=== PATIENT | male | born 2000 | race African-American/Black ===

== ENCOUNTER 2021-06-14 18:48 | Emergency (ER) | payer OTHER, SELFPAY ==
[2021-06-14 18:48] VITALS: BP 127/78; PULSE 71; RESP 16; TEMP 36.8; O2SAT 98; BMI 28.7
--- NOTE | 2021-06-14 19:22 | ED.MALEGU ---
HPI - Male Genitourinary General Chief complaint: Urogenital-Male Stated complaint: WANTS STD TEST Time Seen by Provider: 06/14/21 19:22 Source: patient Mode of arrival: Ambulatory Limitations: no limitations History of Present Illness HPI Narrative: This is a 20-year-old male with no known medical issues. Patient is here requesting testing for STI. Patient states he has not had prior infections in the past. He has had male and female partners in the past. Most recent male partner has use protection intermittently but has only 1 partner. Patient states he has had annual testing and is presenting for that today. He does not wish to do HIV hepatitis C testing today. He is aware that this does need to be checked. He has been asymptomatic, denies any testicular pain, no discharge, no dysuria, no rashes or skin changes. He has not had fevers or chills or other symptoms. He denies any daily medications. No surgeries. No allergies to medications. He recently moved to the area and established at the [facility] for primary care. Review of Systems Review of Systems ROS Unobtainable: All systems reviewed & are unremarkable except as noted in HPI and below Patient History Social History Smoking Status: Never smoker Smoking Status: Never smoker Substance Use Type: does not use Exam Narrative Exam Narrative: GENERAL: Alert and oriented x three, male in no acute distress. HEENT: Head normocephalic, atraumatic, EOMI, pupils reactive, face symmetric, moist mucous membranes NECK: Supple, full range of motion CARDIOVASCULAR: Regular rate and rhythm without murmurs, rubs or gallops. RESPIRATORY: Breath sounds equal bilaterally, no wheezes rales or rhonchi. ABDOMEN: Soft, nontender. Normoactive bowel sounds all 4 quadrants. No guarding or rebound, rigidity, no mass : No CVA tenderness. Male: normal external examination, no penile discharge or lesions, testicles non-tender, cremasteric reflex intact, no inguinal hernias noted. No rashes lesions or skin changes. EXTREMITIES: Normal range of motion, no clubbing or edema. Neurovascularly intact NEUROLOGICAL: Cranial nerves II through XII grossly intact. Moving all extremities SKIN: Warm, dry, no petechiae, no rashes or lesions. Initial Vital Signs Initial Vital Signs: Vital Signs Temperature 98.3 F 06/14/21 18:48 Pulse Rate 71 06/14/21 18:48 Respiratory Rate 16 06/14/21 18:48 Blood Pressure 127/78 06/14/21 18:48 Pulse Oximetry 98 06/14/21 18:48 Course Orders Ordered: ED Orders 06/14/21 19:30 Chlamydia Gonorrhea PCR -URINE Stat Reevaluation(s) Reevaluation #1: Patient is asymptomatic with negative urine GC today. Discussed places options to be tested for HIV and hep C as they deferred today. They do plan to follow-up for this testing. All questions answered. Vital Signs Vital signs: Vital Signs - 8 hr 06/14/21 18:48 Temperature 98.3 F Pulse Rate 71 Respiratory Rate 16 Blood Pressure 127/78 Pulse Oximetry 98 MDM - Male Genitourinary Lab Data Labs: Lab Results 06/14/21 Range/Units 19:30 Ur Chlamydia DNA (PCR) Not detected N gonorrhoeae DNA (PCR) Not detected MDM Narrative Medical decision making narrative: This is a 20-year-old sexually active male requesting evaluation for gonorrhea and chlamydia. Patient does not have any known exposures or symptoms currently and is seeking what he describes as annual testing. He does know that he needs HIV and hepatitis C testing but defers doing that today. Discharge Plan Departure Patient Disposition: Home Clinical Impression: Patient request for diagnostic testing Activity Restrictions/Additional Instructions: Continued to have regular annual testing for infections. I do recommend you have testing for HIV and hepatitis-C if your sexually active. Options include your primary care physician [facility] in [place] at [phone] Please return for fevers, painful urination, drainage from the penis, rashes or skin changes, testicular pain, abdominal pain or other new or concerning symptoms.
[2021-06-14 21:04] LABS: Urine N gonorrhoeae NOT DETECTED
[2021-06-14 21:17] LABS: Urine Chlamydia NOT DETECTED
== END 2021-06-14 21:23 | disposition home or self-care (01) ==
PROVIDERS: Emergency Provider Emergency Medicine
DX: Z11.3 Encounter for screening for infections with a predominantly sexual mode of transmission (principal)
CPT/HCPCS: 87491; 87591; 99281; 99282

== ENCOUNTER 2022-06-01 01:04 | Emergency (ER) | payer OTHER, SELFPAY ==
[2022-06-01 01:09] VITALS: BP 151/90; PULSE 84; RESP 18; TEMP 36.6; O2SAT 100; BMI 26.5
[2022-06-01 02:02] LABS: Appearance Urine UA CLEAR; Bilirubin Urine UA NEGATIVE (NEGATIVE); Color Urine UA YELLOW; Glucose Urine UA NEGATIVE (Negative); Ketones Urine UA TRACE (NEGATIVE); Leukocyte Esterase Urine UA NEGATIVE (NEGATIVE); Nitrite Urine UA NEGATIVE (Negative); Occult Blood Urine UA NEGATIVE (Negative); Protein Urine UA NEGATIVE (Negative)
[2022-06-01 02:19] LABS: Bacteria Urine None Seen; Culture Indicated Urine Cult Not Indicated; RBC Urine None Seen (0-5/HPF); WBC Urine None Seen (0-5/HPF)
[2022-06-01 02:25] LABS: Add Manual Diff / Slide Review NO; Basophils Absolute Auto 0 /uL (0-100); Basophils Percent Auto 0.8 % (0-2); Eosinophils Absolute Auto 100 /uL (0-450); Eosinophils Percent Auto 1.8 % (2-4); Hematocrit 41.1 % (41-53); Hemoglobin 13.6 g/dL (13.5-17.5); Lymphocytes Absolute Auto 1800 /uL (1100-4500); Lymphocytes Percent Auto 40.9 % (25-40); Mean Corpuscular HGB Conc 33.1 % (30-36); Mean Corpuscular Hemoglobin 28.7 PG (26-34); Mean Corpuscular Volume 86.7 fL (80-100); Monocytes Absolute Auto 900 /uL (0-900); Monocytes Percent Auto 19.9 % (3-14); Neutrophils Absolute Auto 1700 /uL (1500-7000); Neutrophils Percent Auto 36.6 % (50-75); Platelet Count 285 X10^3/uL (150-400); Red Blood Cell Count 4.74 X10^6/uL (4.5-5.9); Red Cell Distribution Width 13.6 % (11.6-14.8); White Blood Cell Count 4.5 X10^3/uL (4.5-11.0)
[2022-06-01 02:33] LABS: Alanine Aminotransferase 15 IU/L (<50); Albumin Globulin Ratio 1.4 (1.0-2.8); Alkaline Phosphatase 56 U/L (38-126); Aspartate Aminotransferase 24 IU/L (17-59); BUN Creatinine Ratio 13.9 (6-22); Bilirubin Total 0.5 mg/dL (0.2-1.3); Blood Urea Nitrogen 11 mg/dL (9-20); Calcium 8.7 mg/dL (8.4-10.2); Carbon Dioxide 29 mmol/L (22-32); Chloride 104 mmol/L (98-107); Estimated Glomerular Filt Rate > 60 mL/min (>60); Globulin 2.8 g/dL (1.7-4.1); Glucose 81 mg/dL (70-100); HEMOLYSIS < 15 (0-50); Potassium 3.7 mmol/L (3.4-5.1); Sodium 139 mmol/L (137-145); Total Protein 6.8 g/dL (6.3-8.2)
[2022-06-01 02:36] LABS: Ur Creatinine Normal (Normal); Ur Specific Gravity Normal (Normal); Urine pH Normal (Normal)
[2022-06-01 02:37] LABS: UR Morphine/Opiate cutoff 300 Negative (Negative); Urine Amphetamines Negative (Negative); Urine Barbiturates Negative (Negative); Urine Benzodiazepines Negative (Negative); Urine Cocaine Negative (Negative); Urine MDMA Negative (Negative); Urine Methadone Negative (Negative); Urine Methamphetamines Negative (Negative); Urine Oxycodone Negative (Negative); Urine Phencyclidine Negative (Negative); Urine Tetrahydrocannabinol Negative (Negative); Urine Tricyclic Antidepressant Negative (Negative)
[2022-06-01 03:03] LABS: Ethanol (ETOH) < 10 mg/dL
--- NOTE | 2022-06-01 03:13 | ED.PSYCH ---
HPI - Psych <Quinton Valderrama DO - Last Filed: 06/02/22 17:28> General Chief Complaint: Psychiatric Symptoms Stated Complaint: wants to kill himself Time Seen by Provider: 06/01/22 01:11 Source: patient Mode of arrival: Ambulatory History of Present Illness HPI Narrative: 21-year-old male nonsmoker with noncontributory medical history presents with a chief complaint of suicidal ideation with plan to use a knife. He actually presented with such a knife to the emergency department. He does have a therapist that he sees in [place], saw them yesterday but was not feeling suicidal at the time. Trigger melanie was his girlfriend. Patient is active duty. He denies any prior episodes of suicidal ideation sufficient to warrant visit to the emergency department <Scott Liriano MD - Last Filed: 06/01/22 22:13> History of Present Illness HPI Narrative: 21-year-old male nonsmoker with noncontributory medical history presents with a chief complaint of suicidal ideation with plan to use a knife. He actually presented with such a knife to the emergency department. He does have a therapist that he sees in [place], saw them yesterday but was not feeling suicidal at the time. Trigger tondennis was his girlfriend. Patient is active duty. He denies any prior episodes of suicidal ideation sufficient to warrant visit to the emergency department Review of Systems <Quinton Valderrama DO - Last Filed: 06/02/22 17:28> Review of Systems Narrative: GENERAL: Denies chills, fatigue, malaise, fever, sweats. HEENT: Denies sinus pain, ear pain, sore throat, difficulty swallowing, dizziness. RESPIRATORY: Denies dyspnea, cough, wheezing, hemoptysis, sputum. CARDIOVASCULAR: Denies chest pain, palpitations, orthopnea, edema, GASTROINTESTINAL: Denies nausea, vomiting, abdominal pain, diarrhea, constipation, melena. : Denies dysuria, frequency, incontinence, hematuria, urinary retention. MUSCULOSKELETAL: denies weakness, joint pain, or bony pain SKIN: Denies rash, skin lesions, or other NEUROLOGIC: Denies weakness, headache, numbness, change in speech, confusion, seizures, incoordination. PSYCHIATRIC: See HPI 12 point review of systems is negative except for those stated above Patient History <Quinton Valderrama DO - Last Filed: 06/02/22 17:28> Social History Smoking Status: Never smoker Smoking Status: Never smoker alcohol intake frequency: a few times a month Substance Use Type: does not use Exam <Quinton Valderrama DO - Last Filed: 06/02/22 17:28> Narrative Exam Narrative: GENERAL: [21] year old patient appears stated age. Well-developed patient, in mild distress. HEAD: Atraumatic. Normocephalic. EYES: Pupils equal round and reactive. Extraocular motions intact. No scleral icterus. No injection or drainage. ENT: Nose without bleeding, purulent drainage. Throat without erythema, tonsillar hypertrophy or exudate. Airway patent. NECK: Trachea midline. Non tender CARDIOVASCULAR: Regular rate and rhythm without murmurs, gallops, or rubs. RESPIRATORY: Clear to auscultation. Breath sounds equal bilaterally. No wheezes, rales, or rhonchi. GASTROINTESTINAL: Abdomen soft, non-tender, nondistended. EXTREMITIES: No edema or joint tenderness. BACK: Nontender without deformity or crepitance. No flank tenderness. NEURO: AOx3. SKIN: No rash or erythema of visible areas Initial Vital Signs Initial Vital Signs: Vital Signs Temperature 98 F 06/01/22 01:09 Pulse Rate 84 06/01/22 01:09 Respiratory Rate 18 06/01/22 01:09 Blood Pressure 151/90 H 06/01/22 01:09 Pulse Oximetry 100 06/01/22 01:09 Oxygen Delivery Method Room Air 06/01/22 01:09 <Scott Liriano MD - Last Filed: 06/01/22 22:13> Initial Vital Signs Initial Vital Signs: Vital Signs Temperature 98 F 06/01/22 01:09 Pulse Rate 84 06/01/22 01:09 Respiratory Rate 18 06/01/22 01:09 Blood Pressure 151/90 H 06/01/22 01:09 Pulse Oximetry 100 06/01/22 01:09 Oxygen Delivery Method Room Air 06/01/22 01:09 Course <Quinton Valderrama DO - Last Filed: 06/02/22 17:28> Orders Ordered: ED Orders 06/01/22 06:39 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 Stat 06/01/22 08:10 COVID19 -Nasal RAPID/Pre-Proc Stat Vital Signs Vital signs: Vital Signs - 8 hr 06/01/22 14:25 Pulse Rate 70 Respiratory Rate 16 Blood Pressure 142/87 H Pulse Oximetry 100 <Scott Liriano MD - Last Filed: 06/01/22 22:13> Orders Ordered: ED Orders 06/01/22 06:39 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 Stat 06/01/22 08:10 COVID19 -Nasal RAPID/Pre-Proc Stat Vital Signs Vital signs: Vital Signs - 8 hr 06/01/22 14:25 Pulse Rate 70 Respiratory Rate 16 Blood Pressure 142/87 H Pulse Oximetry 100 MDM - Psych <Quinton Valderrama DO - Last Filed: 06/02/22 17:28> Lab Data 06/01/22 02:12 06/01/22 02:12 Labs: Lab Results 06/01/22 06/01/22 06/01/22 Range/Units 01:30 01:30 02:12 WBC 4.5 (4.5-11.0) X10^3/uL RBC 4.74 (4.5-5.9) X10^6/uL Hgb 13.6 (13.5-17.5) g/dL Hct 41.1 (41-53) % MCV 86.7 (80-100) fL MCH 28.7 (26-34) PG MCHC 33.1 (30-36) % RDW 13.6 (11.6-14.8) % Plt Count 285 (150-400) X10^3/uL Neut % (Auto) 36.6 L (50-75) % Lymph % (Auto) 40.9 H (25-40) % [place] % (Auto) 19.9 H (3-14) % Eos % (Auto) 1.8 L (2-4) % Baso % (Auto) 0.8 (0-2) % Neut # (Auto) 1700 (5581-0892) /uL Lymph # (Auto) 1800 (1189-3721) /uL [place] # (Auto) 900 (0-900) /uL Eos # (Auto) 100 (0-450) /uL Baso # (Auto) 0 (0-100) /uL Sodium (137-145) mmol/L Potassium (3.4-5.1) mmol/L Chloride (98-107) mmol/L Carbon Dioxide (22-32) mmol/L BUN (9-20) mg/dL Creatinine (0.66-1.25) mg/dL Estimated GFR (>60) mL/min BUN/Creatinine Ratio (6-22) Glucose (70-100) mg/dL Calcium (8.4-10.2) mg/dL Total Bilirubin (0.2-1.3) mg/dL AST (17-59) IU/L ALT (<50) IU/L Alkaline Phosphatase (38-126) U/L Total Protein (6.3-8.2) g/dL Albumin (3.5-5.0) g/dL Globulin (1.7-4.1) g/dL Albumin/Globulin Ratio (1.0-2.8) Urine Color Yellow Urine Appearance Clear Urine pH 7.0 (4.5-8.0) Ur Specific Lopez 1.020 (1.000-1.035) Urine Protein Negative (Negative) Urine Glucose (UA) Negative (Negative) g/dL Urine Ketones Trace H (NEGATIVE) Urine Occult Blood Negative (Negative) Urine Nitrate Negative (Negative) Urine Bilirubin Negative (NEGATIVE) Urine Urobilinogen 1.0 (0.2) E.U./dL Ur Leukocyte Esterase Negative (NEGATIVE) Urine RBC None seen (0-5/HPF) Urine WBC None seen (0-5/HPF) Urine Bacteria None seen (None) Ur Culture Indicated? Cult not indicated U Opiates 300ng/mL cut Negative (Negative) Ur Oxycodone Screen Negative (Negative) Urine Methadone Screen Negative (Negative) Ur Barbiturates Screen Negative (Negative) U Tricyclic Antidepress Negative (Negative) Ur Phencyclidine Scrn Negative (Negative) Ur Amphetamines Screen Negative (Negative) U Methamphetamines Scrn Negative (Negative) Ur MDMA Scrn (Ecstasy) Negative (Negative) U Benzodiazepines Scrn Negative (Negative) Urine Cocaine Screen Negative (Negative) U Marijuana (THC) Screen Negative (Negative) Ethyl Alcohol ( - 10) mg/dL SARS-CoV-2 (PCR) (Negative) 06/01/22 06/01/22 Range/Units 02:12 08:10 WBC (4.5-11.0) X10^3/uL RBC (4.5-5.9) X10^6/uL Hgb (13.5-17.5) g/dL Hct (41-53) % MCV (80-100) fL MCH (26-34) PG MCHC (30-36) % RDW (11.6-14.8) % Plt Count (150-400) X10^3/uL Neut % (Auto) (50-75) % Lymph % (Auto) (25-40) % [place] % (Auto) (3-14) % Eos % (Auto) (2-4) % Baso % (Auto) (0-2) % Neut # (Auto) (8893-3471) /uL Lymph # (Auto) (1711-3731) /uL [place] # (Auto) (0-900) /uL Eos # (Auto) (0-450) /uL Baso # (Auto) (0-100) /uL Sodium 139 (137-145) mmol/L Potassium 3.7 (3.4-5.1) mmol/L Chloride 104 (98-107) mmol/L Carbon Dioxide 29 (22-32) mmol/L BUN 11 (9-20) mg/dL Creatinine 0.79 (0.66-1.25) mg/dL Estimated GFR > 60 (>60) mL/min BUN/Creatinine Ratio 13.9 (6-22) Glucose 81 (70-100) mg/dL Calcium 8.7 (8.4-10.2) mg/dL Total Bilirubin 0.5 (0.2-1.3) mg/dL AST 24 (17-59) IU/L ALT 15 (<50) IU/L Alkaline Phosphatase 56 (38-126) U/L Total Protein 6.8 (6.3-8.2) g/dL Albumin 4.0 (3.5-5.0) g/dL Globulin 2.8 (1.7-4.1) g/dL Albumin/Globulin Ratio 1.4 (1.0-2.8) Urine Color Urine Appearance Urine pH (4.5-8.0) Ur Specific Lopez (1.000-1.035) Urine Protein (Negative) Urine Glucose (UA) (Negative) g/dL Urine Ketones (NEGATIVE) Urine Occult Blood (Negative) Urine Nitrate (Negative) Urine Bilirubin (NEGATIVE) Urine Urobilinogen (0.2) E.U./dL Ur Leukocyte Esterase (NEGATIVE) Urine RBC (0-5/HPF) Urine WBC (0-5/HPF) Urine Bacteria (None) Ur Culture Indicated? U Opiates 300ng/mL cut (Negative) Ur Oxycodone Screen (Negative) Urine Methadone Screen (Negative) Ur Barbiturates Screen (Negative) U Tricyclic Antidepress (Negative) Ur Phencyclidine Scrn (Negative) Ur Amphetamines Screen (Negative) U Methamphetamines Scrn (Negative) Ur MDMA Scrn (Ecstasy) (Negative) U Benzodiazepines Scrn (Negative) Urine Cocaine Screen (Negative) U Marijuana (THC) Screen (Negative) Ethyl Alcohol < 10 ( - 10) mg/dL SARS-CoV-2 (PCR) Negative (Negative) <Scott Liriano MD - Last Filed: 06/01/22 22:13> Lab Data Labs: Lab Results 06/01/22 06/01/22 06/01/22 Range/Units 01:30 01:30 02:12 WBC 4.5 (4.5-11.0) X10^3/uL RBC 4.74 (4.5-5.9) X10^6/uL Hgb 13.6 (13.5-17.5) g/dL Hct 41.1 (41-53) % MCV 86.7 (80-100) fL MCH 28.7 (26-34) PG MCHC 33.1 (30-36) % RDW 13.6 (11.6-14.8) % Plt Count 285 (150-400) X10^3/uL Neut % (Auto) 36.6 L (50-75) % Lymph % (Auto) 40.9 H (25-40) % [place] % (Auto) 19.9 H (3-14) % Eos % (Auto) 1.8 L (2-4) % Baso % (Auto) 0.8 (0-2) % Neut # (Auto) 1700 (1533-7784) /uL Lymph # (Auto) 1800 (9531-5394) /uL [place] # (Auto) 900 (0-900) /uL Eos # (Auto) 100 (0-450) /uL Baso # (Auto) 0 (0-100) /uL Sodium (137-145) mmol/L Potassium (3.4-5.1) mmol/L Chloride (98-107) mmol/L Carbon Dioxide (22-32) mmol/L BUN (9-20) mg/dL Creatinine (0.66-1.25) mg/dL Estimated GFR (>60) mL/min BUN/Creatinine Ratio (6-22) Glucose (70-100) mg/dL Calcium (8.4-10.2) mg/dL Total Bilirubin (0.2-1.3) mg/dL AST (17-59) IU/L ALT (<50) IU/L Alkaline Phosphatase (38-126) U/L Total Protein (6.3-8.2) g/dL Albumin (3.5-5.0) g/dL Globulin (1.7-4.1) g/dL Albumin/Globulin Ratio (1.0-2.8) Urine Color Yellow Urine Appearance Clear Urine pH 7.0 (4.5-8.0) Ur Specific Lopez 1.020 (1.000-1.035) Urine Protein Negative (Negative) Urine Glucose (UA) Negative (Negative) g/dL Urine Ketones Trace H (NEGATIVE) Urine Occult Blood Negative (Negative) Urine Nitrate Negative (Negative) Urine Bilirubin Negative (NEGATIVE) Urine Urobilinogen 1.0 (0.2) E.U./dL Ur Leukocyte Esterase Negative (NEGATIVE) Urine RBC None seen (0-5/HPF) Urine WBC None seen (0-5/HPF) Urine Bacteria None seen (None) Ur Culture Indicated? Cult not indicated U Opiates 300ng/mL cut Negative (Negative) Ur Oxycodone Screen Negative (Negative) Urine Methadone Screen Negative (Negative) Ur Barbiturates Screen Negative (Negative) U Tricyclic Antidepress Negative (Negative) Ur Phencyclidine Scrn Negative (Negative) Ur Amphetamines Screen Negative (Negative) U Methamphetamines Scrn Negative (Negative) Ur MDMA Scrn (Ecstasy) Negative (Negative) U Benzodiazepines Scrn Negative (Negative) Urine Cocaine Screen Negative (Negative) U Marijuana (THC) Screen Negative (Negative) Ethyl Alcohol ( - 10) mg/dL SARS-CoV-2 (PCR) (Negative) 06/01/22 06/01/22 Range/Units 02:12 08:10 WBC (4.5-11.0) X10^3/uL RBC (4.5-5.9) X10^6/uL Hgb (13.5-17.5) g/dL Hct (41-53) % MCV (80-100) fL MCH (26-34) PG MCHC (30-36) % RDW (11.6-14.8) % Plt Count (150-400) X10^3/uL Neut % (Auto) (50-75) % Lymph % (Auto) (25-40) % [place] % (Auto) (3-14) % Eos % (Auto) (2-4) % Baso % (Auto) (0-2) % Neut # (Auto) (0934-8555) /uL Lymph # (Auto) (4159-8159) /uL [place] # (Auto) (0-900) /uL Eos # (Auto) (0-450) /uL Baso # (Auto) (0-100) /uL Sodium 139 (137-145) mmol/L Potassium 3.7 (3.4-5.1) mmol/L Chloride 104 (98-107) mmol/L Carbon Dioxide 29 (22-32) mmol/L BUN 11 (9-20) mg/dL Creatinine 0.79 (0.66-1.25) mg/dL Estimated GFR > 60 (>60) mL/min BUN/Creatinine Ratio 13.9 (6-22) Glucose 81 (70-100) mg/dL Calcium 8.7 (8.4-10.2) mg/dL Total Bilirubin 0.5 (0.2-1.3) mg/dL AST 24 (17-59) IU/L ALT 15 (<50) IU/L Alkaline Phosphatase 56 (38-126) U/L Total Protein 6.8 (6.3-8.2) g/dL Albumin 4.0 (3.5-5.0) g/dL Globulin 2.8 (1.7-4.1) g/dL Albumin/Globulin Ratio 1.4 (1.0-2.8) Urine Color Urine Appearance Urine pH (4.5-8.0) Ur Specific Lopez (1.000-1.035) Urine Protein (Negative) Urine Glucose (UA) (Negative) g/dL Urine Ketones (NEGATIVE) Urine Occult Blood (Negative) Urine Nitrate (Negative) Urine Bilirubin (NEGATIVE) Urine Urobilinogen (0.2) E.U./dL Ur Leukocyte Esterase (NEGATIVE) Urine RBC (0-5/HPF) Urine WBC (0-5/HPF) Urine Bacteria (None) Ur Culture Indicated? U Opiates 300ng/mL cut (Negative) Ur Oxycodone Screen (Negative) Urine Methadone Screen (Negative) Ur Barbiturates Screen (Negative) U Tricyclic Antidepress (Negative) Ur Phencyclidine Scrn (Negative) Ur Amphetamines Screen (Negative) U Methamphetamines Scrn (Negative) Ur MDMA Scrn (Ecstasy) (Negative) U Benzodiazepines Scrn (Negative) Urine Cocaine Screen (Negative) U Marijuana (THC) Screen (Negative) Ethyl Alcohol < 10 ( - 10) mg/dL SARS-CoV-2 (PCR) Negative (Negative) MDM Narrative Medical decision making narrative: 21-year-old male presenting with suicidal ideation. On presentation, vital signs notable for hypertension, otherwise reassuring. Physical exam notable for well-appearing 21-year-old male in no acute distress, reassuring cardiopulmonary exam, benign abdomen. Psychiatric exam notable for active SI with plan, no psychomotor agitation, patient is calm and cooperative. Initial concern for suicidal ideation, exacerbation of patient's underlying psychiatric comorbid conditions, metabolic derangement, medication effect, occult substance use. Patient with reassuring medical evaluation, no significant laboratory abnormalities, negative tox screen, given reassuring medical evaluation, medical etiology to explain the patient's symptoms seems unlikely, patient does appear to be medically appropriate for psychiatric admission. Discussed findings with patient at bedside. 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 Discussed case with Dr. Hastings, accepting patient for transfer to [facility]. Patient subsequently transferred in stable condition via ambulance. Critical Care Time <Quinton Valderrama DO - Last Filed: 06/02/22 17:28> Critical Care Time Critical Care Time: Yes Total Critical Care Time: 30 Attestation: The high probability of a clinically significant, sudden or life threatening deterioration of the [Psych] system(s) required my full and direct attention, intervention and personal management. The aggregate critical care time was [30] minutes. This time is in addition to time spent performing reported procedures but includes the following: [x] Data Review and interpretation [x] Patient assessment and monitoring of vital signs [x] Documentation x Medication orders and management Discharge Plan Departure Patient Disposition: Xfer Psychiatric Hosp Clinical Impression: Suicidal ideation Referrals: ProviderAlfonso [Primary Care Provider] -
[2022-06-01 08:28] LABS: COVID19 -Nasal RAPID Negative (Negative)
--- NOTE | 2022-06-01 09:23 | PC.NURSE ---
Resp even and unlabored. Pt tossing and turning in bed
--- NOTE | 2022-06-01 09:24 | PC.NURSE ---
Resp even and unlabored
--- NOTE | 2022-06-01 09:25 | PC.NURSE ---
Breakfast delivered on a safety tray. Pt still sleeping
--- NOTE | 2022-06-01 09:26 | PC.NURSE ---
Speaking with Dr. Chris. Heena, RN in room as well
--- NOTE | 2022-06-01 09:26 | PC.NURSE ---
Pt back to sleep
--- NOTE | 2022-06-01 09:27 | PC.NURSE ---
Resp even and unlabored. Tossing and turning in bed
--- NOTE | 2022-06-01 11:11 | PC.NURSE ---
Report given to HENRRY Fox, all questions answered. Pt amenable to transfer.
--- NOTE | 2022-06-01 11:18 | PC.NURSE ---
Pt been sleeping all morning. Breakfast offered and is at bedside.
[2022-06-01 14:25] VITALS: BP 142/87; PULSE 70; RESP 16; O2SAT 100
== END 2022-06-01 15:10 ==
PROVIDERS: Emergency Medicine; Emergency Provider Emergency Medicine
DX: R45.851 Suicidal ideations (principal); I10 Essential (primary) hypertension
CPT/HCPCS: 80053; 80305; 80320; 81001; 85025; 87635; 99284; C9803